=== PATIENT | male | born 1975 | race Two or more races ===

== ENCOUNTER 2024-08-24 22:40 | Inpatient (IN) | payer MEDICAID ==
[~2024-08-24] VITALS: Ht 185.4 cm; Wt 104.4 kg
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
[2024-08-24 23:18] LABS: Basophils # (auto) 0.1 10 ^3/uL (0-0.2); Basophils % (auto) 0.5 % (0.0-2.0); Eosinophils # (auto) 0.9 10 ^3/uL (0-0.8); Eosinophils % (auto) 6.2 % (0.0-7.0); Hematocrit 49.7 % (41.0-53.0); Hemoglobin 16.8 g/dL (13.5-17.5); Lymphocytes # (auto) 2.5 10 ^3/uL (0.4-5.4); Lymphocytes % (auto) 18.1 % (10.0-50.0); Mean Corpuscular Hemoglobin 29.9 pg (28.0-32.0); Mean Corpuscular Hgb Conc. 33.8 g/dL (32.0-36.0); Mean Corpuscular Volume 88.5 fL (80.0-100.0); Monocytes # (auto) 1.4 10 ^3/uL (0-1.3); Monocytes % (auto) 10.2 % (0.0-12.0); Neutrophils # (auto) 9.2 10 ^3/uL (1.6-8.6); Nucleated Red Blood Cells % 0.1 %; Platelet Count (auto) 261 10^3/uL (140-450); Red Blood Cells 5.61 10^6/uL (4.5-5.90); Red Cell Distribution Width 13.4 % (11.8-14.3); White Blood Cell 14.1 10^3/uL (4.4-10.8)
[2024-08-24 23:21] LABS: Chloride 99 mmol/L (98-107)
[2024-08-24 23:22] LABS: Anion Gap 6 (5-15); Carbon Dioxide 30 mmol/L (20-31)
[2024-08-24 23:23] LABS: Calcium 9.4 mg/dL (8.7-10.4)
[2024-08-24 23:27] LABS: BUN/Creatinine Ratio 20.2 (10.0-20.0)
--- NOTE | 2024-08-24 23:34 | DVH ---
CHEST RADIOGRAPH Indication: near syncope Technique: Single frontal view of the chest was obtained COMPARISON: None FINDINGS: Lines and Tubes: None Lungs: Mild bibasilar subsegmental atelectasis/consolidation. Pleura: Probable small left pleural effusion. No pneumothorax Cardiomediastinal contours: Unremarkable Bones: Unremarkable IMPRESSION: Mild bibasilar subsegmental atelectasis/consolidation and probable small left pleural effusion.
[2024-08-24 23:35] LABS: Blood Alcohol < 3.0 mg/dL (<10); Blood Urea Nitrogen 23 mg/dL (9-23); Glucose 132 mg/dL (74-106); Sodium 135 mmol/L (136-145)
[2024-08-24 23:41] LABS: Urine Bacteria None Seen /hpf (None Seen)
[2024-08-25 00:03] LABS: Urine Blood Negative /uL (Negative); Urine Clarity Clear (Clear); Urine Color Light-Yellow (Yellow); Urine Protein, UAD Negative (Negative); Urine Specific Gravity 1.021 (1.001-1.035); Urine Squamous Epithelial Cell FEW /hpf (<5); Urine Urobilinogen Normal (Negative); Urine WBC 3 /HPF (0-3); Urine pH 6.5 (5.0-9.0)
[2024-08-25] MEDS ORDERED: ACETAMINOPHEN 325 MG TAB PO PRN (01:30)
[2024-08-25] MEDS ORDERED: VANCOMYCIN PER PHARMACY 0 MG IV SCH (01:30)
[2024-08-25] MEDS ORDERED: ONDANSETRON HCL 4 MG/2 ML VIAL IV PRN (01:30)
[2024-08-25] MEDS ORDERED: DOCUSATE SOD 100 MG CAP PO PRN (01:30)
[2024-08-25] MEDS ORDERED: MORPHINE SULFATE INJ 2 MG/ml SYRG IV PRN (02:00)
[2024-08-25] MEDS ORDERED: hydrALAZINE HCL 20 MG/ML VL IV PRN (02:00)
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
[2024-08-25 03:52] VITALS: PULSE 84; RESP 16; O2SAT 96
[2024-08-25] MEDS: SODIUM CHLORIDE 0.9% 1,000 ML IV ONE (04:06)
[2024-08-25] MEDS: VANCOMYCIN 1GM/250ML KIT 200 ML IV ONE (04:06)
[2024-08-25] MEDS: AZITHROMYCIN 250 MG TAB PO ONE (04:06)
[2024-08-25] MEDS ORDERED: VANCOMYCIN 1GM/250mL NS or D5W KIT IV ONE (04:30)
[2024-08-25 06:42] LABS: Basophils # (auto) 0.1 10 ^3/uL (0-0.2); Basophils % (auto) 0.7 % (0.0-2.0); Eosinophils # (auto) 0.8 10 ^3/uL (0-0.8); Eosinophils % (auto) 6.6 % (0.0-7.0); Hematocrit 45.3 % (41.0-53.0); Hemoglobin 15.4 g/dL (13.5-17.5); Lymphocytes # (auto) 1.9 10 ^3/uL (0.4-5.4); Lymphocytes % (auto) 15.5 % (10.0-50.0); Mean Corpuscular Hemoglobin 29.9 pg (28.0-32.0); Mean Corpuscular Volume 88.1 fL (80.0-100.0); Monocytes # (auto) 1.3 10 ^3/uL (0-1.3); Monocytes % (auto) 10.7 % (0.0-12.0); Neutrophils # (auto) 8.3 10 ^3/uL (1.6-8.6); Neutrophils % (auto) 66.5 % (37.0-80.0); Platelet Count (auto) 240 10^3/uL (140-450); Red Blood Cells 5.14 10^6/uL (4.5-5.90); Red Cell Distribution Width 13.7 % (11.8-14.3); White Blood Cell 12.4 10^3/uL (4.4-10.8)
[2024-08-25 07:04] LABS: Alanine Aminotransferase 27 U/L (7-40); Albumin 3.9 g/dL (3.2-4.8); Alkaline Phosphatase 98 U/L (46-116); Anion Gap 7 (5-15); BUN/Creatinine Ratio 21.7 (10.0-20.0); Blood Urea Nitrogen 20 mg/dL (9-23); Calcium 8.7 mg/dL (8.7-10.4); Carbon Dioxide 26 mmol/L (20-31); Chloride 101 mmol/L (98-107); Potassium 3.9 mmol/L (3.5-5.1); Total Protein 6.2 g/dL (5.7-8.2)
[2024-08-25 07:05] LABS: Bilirubin, Total 0.5 mg/dL (0.2-1.0)
[2024-08-25 07:08] LABS: Aspartate Aminotransferase 9 U/L (13-40); Glucose 124 mg/dL (74-106); Sodium 134 mmol/L (136-145)
[2024-08-25 08:28] VITALS: PULSE 81; RESP 15; O2SAT 92
[2024-08-25] MEDS: amLODIPine BESYLATE 5 MG TAB PO SCH (09:49)
[2024-08-25] MEDS: APIXABAN 5 MG TAB PO SCH (09:49)
[2024-08-25] MEDS: CEFEPIME 2GM/50ML NS 50 ML IV ONE (09:50)
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
[2024-08-25] MEDS: VANCOMYCIN 1.25GM/250ML 250 ML IV SCH (11:13)
[2024-08-25] MEDS: SODIUM CHLORIDE 0.9% 1,000 ML IV SCH (13:24)
[2024-08-25 14:45] LABS: Hepatitis B Surface Antibody Negative (Negative); Hepatitis B Surface Antigen Negative (Negative)
[2024-08-25 19:25] VITALS: PULSE 82; RESP 14; O2SAT 93
[2024-08-25 21:08] VITALS: BP 129/76; PULSE 89; RESP 20; TEMP 97.5; O2SAT 96
[2024-08-25 21:29] VITALS: PULSE 16; RESP 16
[2024-08-25] MEDS ORDERED: SENN-58 PO (22:13)
[2024-08-25] MEDS ORDERED: ZOFR4T PO (22:13)
[2024-08-25] MEDS ORDERED: AML5T PO (22:13)
[2024-08-25] MEDS ORDERED: GABA-1250 PO (22:13)
[2024-08-25] MEDS ORDERED: APIX5TAB PO (22:13)
[2024-08-25] MEDS ORDERED: METH-1182 PO (22:13)
[2024-08-25] MEDS ORDERED: ACET-6 PO (22:13)
[2024-08-25] MEDS ORDERED: AMOX500T86 PO (22:13)
[2024-08-26] VITALS (7 sets, daily range): BP systolic 108–128; BP diastolic 61–80; PULSE 68–85; RESP 17–20; TEMP 97.7–98.5; O2SAT 91–96
[2024-08-26] MEDS: AZITHROMYCIN 500MG/ 250ML 250 ML IV SCH (09:38)
[2024-08-26 12:15] LABS: Basophils # (auto) 0.1 10 ^3/uL (0-0.2); Basophils % (auto) 0.7 % (0.0-2.0); Eosinophils # (auto) 0.6 10 ^3/uL (0-0.8); Eosinophils % (auto) 5.8 % (0.0-7.0); Hemoglobin 17.1 g/dL (13.5-17.5); Lymphocytes # (auto) 1.8 10 ^3/uL (0.4-5.4); Lymphocytes % (auto) 16.7 % (10.0-50.0); Mean Corpuscular Hgb Conc. 33.6 g/dL (32.0-36.0); Mean Corpuscular Volume 89.1 fL (80.0-100.0); Monocytes # (auto) 0.9 10 ^3/uL (0-1.3); Monocytes % (auto) 8.2 % (0.0-12.0); Neutrophils # (auto) 7.2 10 ^3/uL (1.6-8.6); Neutrophils % (auto) 68.6 % (37.0-80.0); Nucleated Red Blood Cells % 0.2 %; Platelet Count (auto) 283 10^3/uL (140-450); Red Blood Cells 5.72 10^6/uL (4.5-5.90); Red Cell Distribution Width 13.9 % (11.8-14.3); White Blood Cell 10.5 10^3/uL (4.4-10.8)
[2024-08-26 12:36] LABS: Alanine Aminotransferase 39 U/L (7-40); Albumin 4.4 g/dL (3.2-4.8); Alkaline Phosphatase 107 U/L (46-116); Anion Gap 8 (5-15); BUN/Creatinine Ratio 17.5 (10.0-20.0); Bilirubin, Total 0.5 mg/dL (0.2-1.0); Blood Urea Nitrogen 17 mg/dL (9-23); Calcium 9.2 mg/dL (8.7-10.4); Carbon Dioxide 26 mmol/L (20-31); Chloride 99 mmol/L (98-107); Potassium 3.8 mmol/L (3.5-5.1)
[2024-08-26 12:39] LABS: Aspartate Aminotransferase 12 U/L (13-40); Glucose 168 mg/dL (74-106); Sodium 133 mmol/L (136-145)
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
[2024-08-26] MEDS: NITROGLYCERIN 0.4 MG SL TAB SL PRN (12:56)
[2024-08-26] MEDS: HYDROcodone-ACET 5/325MG TAB PO PRN (13:25)
[2024-08-27 01:00] VITALS: BP 114/73; PULSE 62; RESP 18; TEMP 97.9; O2SAT 96
[2024-08-27] MEDS: VANCOMYCIN HCL 1000 MG VL ONE (04:27)
[2024-08-27 05:00] VITALS: BP 137/85; PULSE 80; RESP 20; TEMP 98.6; O2SAT 95
[2024-08-27 06:28] LABS: Basophils # (auto) 0.1 10 ^3/uL (0-0.2); Basophils % (auto) 0.6 % (0.0-2.0); Eosinophils # (auto) 0.6 10 ^3/uL (0-0.8); Eosinophils % (auto) 4.3 % (0.0-7.0); Hematocrit 48.6 % (41.0-53.0); Hemoglobin 16.2 g/dL (13.5-17.5); Lymphocytes # (auto) 2.3 10 ^3/uL (0.4-5.4); Lymphocytes % (auto) 17.7 % (10.0-50.0); Mean Corpuscular Hemoglobin 29.5 pg (28.0-32.0); Mean Corpuscular Hgb Conc. 33.4 g/dL (32.0-36.0); Mean Corpuscular Volume 88.4 fL (80.0-100.0); Monocytes # (auto) 1.3 10 ^3/uL (0-1.3); Monocytes % (auto) 9.9 % (0.0-12.0); Neutrophils # (auto) 8.8 10 ^3/uL (1.6-8.6); Neutrophils % (auto) 67.5 % (37.0-80.0); Nucleated Red Blood Cells % 0.1 %; Platelet Count (auto) 279 10^3/uL (140-450); Red Cell Distribution Width 13.7 % (11.8-14.3)
[2024-08-27 06:58] LABS: Calcium 9.6 mg/dL (8.7-10.4); Chloride 102 mmol/L (98-107); Potassium 4.4 mmol/L (3.5-5.1)
[2024-08-27 06:59] LABS: Anion Gap 10 (5-15); Carbon Dioxide 24 mmol/L (20-31)
[2024-08-27 07:04] LABS: Blood Urea Nitrogen 17 mg/dL (9-23); Glucose 91 mg/dL (74-106)
[2024-08-27 07:07] LABS: Sodium 136 mmol/L (136-145)
[2024-08-27 08:22] VITALS: PULSE 74
[2024-08-27 09:00] VITALS: BP 115/78; PULSE 71; RESP 18; TEMP 97.5; O2SAT 93
--- NOTE | 2024-08-27 11:28 | ECG ---
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
[2024-08-27 13:00] VITALS: BP 119/69
--- NOTE | 2024-08-27 14:54 | ECG ---
[facility] Test Date: 2024-08-24 Test Time: 22:51:52 Pat Name: VERNELL SALAZAR Department: ED Room: 0284T Gender: M Negative Cleaner: HAILEY : 1975 Requested By: EVA MARQUEZ Order Number: [id number] Reading MD: Measurements Intervals [place] Rate: 90 P: 62 NM: 167 QRS: 13 QRSD: 99 T: 59 QT: 357 QTc: 437 Interpretive Statements Sinus rhythm Atrial premature complexes in couplets Borderline T wave abnormalities Baseline wander in lead(s) III,V1,V2 Please click the below link to view image of tracing.
[2024-08-27] MEDS ORDERED: AZIT-43 PO (15:04)
[2024-08-27 17:00] VITALS: BP 125/93; PULSE 100; RESP 18; TEMP 98; O2SAT 97
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
== END 2024-08-27 16:42 | disposition home or self-care (01) | DRG 720 ==
LOC: ER 22:40 → EDBD 22:40 → OVERFLOW 08-25 01:59 → TELE-WESTW 08-25 02:00
PROVIDERS: ADMIT Hospitalist; ATTEND Hospitalist
DX: A41.9 Sepsis, unspecified organism (principal); J15.69 Pneumonia due to other Gram-negative bacteria; I10 Essential (primary) hypertension; J98.11 Atelectasis; Z59.00 Homelessness unspecified; R73.9 Hyperglycemia, unspecified; E66.9 Obesity, unspecified; Z68.38 Body mass index [BMI] 38.0-38.9, adult; Z79.01 Long term (current) use of anticoagulants
CPT/HCPCS: 36415; 71045; 80048; 80053; 80202; 80320; 81001; 83036; 83605; 84484; 85025; 86703; 86706; 86803; 87040; 87340; 93005; 96365; 96366; 96367; G0378; J0692